=== PATIENT | male | born 1960 | race Caucasian/White ===

== ENCOUNTER 2016-10-01 15:07 | Emergency (ER) | payer OTHER ==
[~2016-10-01] VITALS: Ht 182.9 cm; Wt 93.9 kg
[2016-10-01 15:43] LABS: Basophils # (auto) 0.1 uL; Basophils % (auto) 0.5 % (0.0-2.0); Eosinophils # (auto) 0.3 uL; Eosinophils % (auto) 1.9 % (0.0-7.0); Hematocrit 45.3 % (41.0-53.0); Hemoglobin 15.1 g/dL (13.5-17.5); Mean Corpuscular Hgb Conc. 33.4 g/dL (32.0-36.0); Mean Corpuscular Volume 83.8 fL (80.0-100.0); Mean Platelet Volume 9.6 fL (7.4-10.4); Monocytes # (auto) 0.8 uL; Monocytes % (auto) 5.7 % (0.0-12.0); Neutrophils # (auto) 11.7 uL; Neutrophils % (auto) 84.9 % (37.0-80.0); Platelet Count (auto) 267 10^3/uL (140-450); Red Cell Distribution Width 13.4 % (11.6-16.0); White Blood Cell 13.7 10^3/uL (4.4-10.8)
[2016-10-01 15:54] LABS: BUN/Creatinine Ratio 13.3; Calcium 9.1 mg/dL (8.5-10.1); Potassium 4.3 mmol/L (3.5-5.1)
[2016-10-01 15:56] LABS: Bilirubin, Total 0.6 mg/dL (0.2-1.0); Total Protein 7.8 g/dL (6.4-8.2)
[2016-10-01] MEDS ORDERED: ASPirin 81 mg TAB PO ONE (17:45)
[2016-10-01 18:04] LABS: Magnesium 2.2 mg/dL (1.6-2.6)
[2016-10-01 18:46] LABS: B-Type Natriuretic Peptide 33.87 pg/mL (0-100)
[2016-10-01 19:12] LABS: Temperature: 22.2 C (20.0-25.0)
[2016-10-01 19:42] VITALS: BP 107/70
== END 2016-10-01 20:09 | disposition home or self-care (01) ==
LOC: ER 15:07
DX: J20.9 Acute bronchitis, unspecified (principal); E11.9 Type 2 diabetes mellitus without complications; E78.5 Hyperlipidemia, unspecified; F17.210 Nicotine dependence, cigarettes, uncomplicated; Z86.73 Personal history of transient ischemic attack (TIA), and cerebral infarction without residual deficits; Z90.89 Acquired absence of other organs
CPT/HCPCS: 36415; 71020; 80053; 83735; 83880; 84484; 85025; 85379; 93005; 94761

== ENCOUNTER 2017-06-28 09:50 | Emergency (ER) | payer OTHER ==
[~2017-06-28] VITALS: Ht 182.9 cm; Wt 90.7 kg
[2017-06-28 10:22] VITALS: BP 146/78
[2017-06-28] MEDS ORDERED: IPRATROPIUM BROM 0.5 MG/2.5ML INH SOL HHN ONE (10:30)
[2017-06-28] MEDS ORDERED: methylPREDNISolone SOD SUCC 125 MG/2 ML VL IV ONE (10:30)
[2017-06-28] MEDS ORDERED: ALBUTEROL SULF 2.5 MG/0.5ML(0.5%) NEB SOLN HHN ONE (10:30)
[2017-06-28] MEDS ORDERED: SODIUM CHLORIDE 0.9% 1,000 ML IV ONE (10:30)
[2017-06-28 11:36] LABS: Basophils # (auto) 0 uL; Basophils % (auto) 0.1 % (0.0-2.0); Eosinophils # (auto) 0 uL; Hematocrit 44.9 % (41.0-53.0); Hemoglobin 15.1 g/dL (13.5-17.5); Lymphocytes % (auto) 19.6 % (10.0-50.0); Mean Corpuscular Hemoglobin 28.7 pg (28.0-32.0); Mean Corpuscular Hgb Conc. 33.7 g/dL (32.0-36.0); Mean Corpuscular Volume 85.1 fL (80.0-100.0); Monocytes # (auto) 1.5 uL; Monocytes % (auto) 14.5 % (0.0-12.0); Neutrophils # (auto) 6.7 uL; Neutrophils % (auto) 65.8 % (37.0-80.0); Nucleated Red Blood Cells % 0.4 %; Platelet Count (auto) 210 10^3/uL (140-450); Red Blood Cells 5.28 10^6/uL (4.5-5.90); Red Cell Distribution Width 13.6 % (11.8-14.3); White Blood Cell 10.2 10^3/uL (4.4-10.8)
[2017-06-28 11:54] LABS: Alanine Aminotransferase 51 U/L (16-61); Albumin 3.7 g/dL (3.4-5.0); Alkaline Phosphatase 83 U/L (45-117); Anion Gap 12 (5-15); Aspartate Aminotransferase 35 U/L (15-37); BUN/Creatinine Ratio 27.6; Bilirubin, Total 0.4 mg/dL (0.2-1.0); Blood Urea Nitrogen 27 mg/dL (7-18); Carbon Dioxide 25 mmol/L (21-32); Chloride 101 mmol/L (98-107); GFR African American 101 mL/min; GFR Non-African American 83 mL/min; Glucose 165 mg/dL (74-106); Magnesium 2.2 mg/dL (1.6-2.6); Potassium 4.2 mmol/L (3.5-5.1); Sodium 138 mmol/L (136-145); Total Protein 7.7 g/dL (6.4-8.2)
== END 2017-06-28 12:14 | disposition home or self-care (01) ==
LOC: ER 09:50
DX: J20.9 Acute bronchitis, unspecified (principal); J43.9 Emphysema, unspecified; J44.9 Chronic obstructive pulmonary disease, unspecified; E11.9 Type 2 diabetes mellitus without complications; E78.5 Hyperlipidemia, unspecified; Z86.73 Personal history of transient ischemic attack (TIA), and cerebral infarction without residual deficits; F17.210 Nicotine dependence, cigarettes, uncomplicated
CPT/HCPCS: 36415; 71045; 80053; 83735; 84484; 85025; 93005; 94640; 94761; 96361; 96374; 99285; J2930

== ENCOUNTER 2017-07-02 11:44 | Inpatient (IN) | payer OTHER ==
[~2017-07-02] VITALS: Ht 182.9 cm; Wt 98.1 kg
[2017-07-02] MEDS ORDERED: IPRATROPIUM BROM 0.5 MG/2.5ML INH SOL NEB ONE (12:15)
[2017-07-02] MEDS ORDERED: methylPREDNISolone SOD SUCC 125 MG/2 ML VL IV ONE (12:15)
[2017-07-02] MEDS ORDERED: ASPirin 81 mg TAB PO ONE (12:15)
[2017-07-02] MEDS ORDERED: NITROGLYCERIN 0.4 MG SL TAB SL ONE (12:15)
[2017-07-02] MEDS ORDERED: ALBUTEROL SULF 2.5 MG/0.5ML(0.5%) NEB SOLN NEB ONE (12:15)
[2017-07-02 14:44] LABS: Basophils # (auto) 0.1 uL; Basophils % (auto) 0.5 % (0.0-2.0); Eosinophils # (auto) 0.1 uL; Eosinophils % (auto) 0.9 % (0.0-7.0); Hematocrit 50.1 % (41.0-53.0); Hemoglobin 16.8 g/dL (13.5-17.5); Lymphocytes % (auto) 14.1 % (10.0-50.0); Mean Corpuscular Hemoglobin 28.4 pg (28.0-32.0); Mean Corpuscular Hgb Conc. 33.6 g/dL (32.0-36.0); Mean Corpuscular Volume 84.6 fL (80.0-100.0); Monocytes # (auto) 1.1 uL; Monocytes % (auto) 7.7 % (0.0-12.0); Neutrophils % (auto) 76.8 % (37.0-80.0); Nucleated Red Blood Cells % 0.2 %; Platelet Count (auto) 305 10^3/uL (140-450); Red Blood Cells 5.93 10^6/uL (4.5-5.90); Red Cell Distribution Width 13.3 % (11.8-14.3); White Blood Cell 14.4 10^3/uL (4.4-10.8)
[2017-07-02 14:50] LABS: INR 0.93 (0.9-1.15); Partial Thromboplastin Time 25.2 sec (22.64-33.71); Prothrombin Time 10.1 sec (9.37-12.3)
[2017-07-02 14:56] LABS: Alanine Aminotransferase 33 U/L (16-61); Albumin 3.6 g/dL (3.4-5.0); Anion Gap 10 (5-15); Aspartate Aminotransferase 12 U/L (15-37); BUN/Creatinine Ratio 17.5; Blood Urea Nitrogen 24 mg/dL (7-18); Carbon Dioxide 26 mmol/L (21-32); Chloride 93 mmol/L (98-107); GFR African American 68 mL/min; GFR Non-African American 57 mL/min; Potassium 4.6 mmol/L (3.5-5.1); Sodium 129 mmol/L (136-145)
[2017-07-02 14:57] LABS: Lactic Acid w/Reflex 2.9 mmol/L (0.4-2.0)
[2017-07-02 14:59] LABS: Alkaline Phosphatase 87 U/L (45-117); Bilirubin, Total 0.5 mg/dL (0.2-1.0); Total Protein 7.8 g/dL (6.4-8.2)
[2017-07-02 15:06] LABS: Glucose 414 mg/dL (74-106)
[2017-07-02] MEDS ORDERED: SODIUM CHLORIDE 0.9% 1,000 ML IV ONE ×2 (15:53)
[2017-07-02] MEDS ORDERED: PIPERACILLIN-TAZOB 3.375GM 50 ML IV ONE (16:00)
[2017-07-02] MEDS ORDERED: NITROGLYCERIN 0.4 MG SL TAB SL PRN (19:00)
[2017-07-02] MEDS ORDERED: HYDROcodone-ACET 5/325MG TAB PO PRN (19:00)
[2017-07-02] MEDS ORDERED: DOCUSATE SOD 100 MG CAP PO PRN (19:00)
[2017-07-02] MEDS ORDERED: ACETAMINOPHEN 325 MG TAB PO PRN (19:00)
[2017-07-02] MEDS ORDERED: DEXTROSE (50%) 50ML SYRG IV PRN (19:00)
[2017-07-02] MEDS ORDERED: TEMAZEPAM 15 MG CAP PO PRN (19:00)
[2017-07-02] MEDS ORDERED: MORPHINE SULFATE 10 MG/ML INJ 1ML SDV IV PRN ×2 (19:00)
[2017-07-02] MEDS ORDERED: ONDANSETRON HCL 4 MG/2 ML VIAL IV PRN (19:00)
[2017-07-02] MEDS ORDERED: cefTRIAXone 1GM/10ml IVPUSH 10 ML IV ONE (19:15)
[2017-07-02] MEDS ORDERED: AZITHROMYCIN 500MG/ 250ML 250 ML IV ONE (20:00)
[2017-07-02] MEDS: OSELTAMIVIR 75 MG CAP PO SCH (21:52)
[2017-07-02] MEDS: ATORVASTATIN 20 MG TAB PO SCH (21:52)
[2017-07-02] MEDS: FAMOTIDINE 20 MG TAB PO SCH (21:52)
[2017-07-02] MEDS: InsuLIN REG 1unit/0.01ml Soln (100units/ml) SC SCH (21:53)
[2017-07-02] MEDS: ACCU-CHEK COMFORT CURVE STRIP VI SCH (21:53)
[2017-07-02] MEDS: FORMOTEROL IN SCH (22:00)
[2017-07-02] MEDS: BENZONATATE 100 MG CAP PO SCH (22:00)
[2017-07-02] MEDS: MUCINEX 600 MG PO SCH (22:00)
[2017-07-02] MEDS: GLYCOPYRROLATE IN SCH (22:00)
[2017-07-02] MEDS ORDERED: PATIENTS OWN MEDICATION IN SCH (22:00)
[2017-07-02] MEDS: IPRATROPIUM BROM 0.5 MG/2.5ML INH SOL NEB SCH (22:48)
[2017-07-02] MEDS: ALBUTEROL SULF 2.5 MG/0.5ML(0.5%) NEB SOLN NEB SCH (22:48)
[2017-07-02] MEDS: SODIUM CHLOR 0.9% PF (SALINE LOCK) 10ML VIAL IV SCH (23:09)
[2017-07-02 23:23] VITALS: BP 134/74
[2017-07-02] MEDS ORDERED: INFLUENZA QUAD 2017-2018 0.5 ML SYRG IM ONE (23:45)
[2017-07-03] VITALS (7 sets, daily range): BP systolic 100–136; BP diastolic 57–71
[2017-07-03] MEDS: IPRATROPIUM BROM 0.5 MG/2.5ML INH SOL NEB SCH ×6 (02:00→22:16)
[2017-07-03] MEDS: ALBUTEROL SULF 2.5 MG/0.5ML(0.5%) NEB SOLN NEB SCH ×6 (02:00→22:16)
[2017-07-03] MEDS: methylPREDNISolone SOD SUCC 40 MG/ML VL IV SCH ×4 (02:14→17:37)
[2017-07-03] MEDS: BENZONATATE 100 MG CAP PO SCH ×3 (06:00→22:00)
[2017-07-03 06:28] LABS: Basophils # (auto) 0 uL; Basophils % (auto) 0.2 % (0.0-2.0); Eosinophils # (auto) 0 uL; Hematocrit 41.7 % (41.0-53.0); Lymphocytes # (auto) 0.8 uL; Mean Corpuscular Hemoglobin 28.1 pg (28.0-32.0); Mean Corpuscular Hgb Conc. 33.5 g/dL (32.0-36.0); Mean Corpuscular Volume 83.9 fL (80.0-100.0); Monocytes # (auto) 0.2 uL; Monocytes % (auto) 1.7 % (0.0-12.0); Neutrophils # (auto) 11.1 uL; Neutrophils % (auto) 91.1 % (37.0-80.0); Platelet Count (auto) 266 10^3/uL (140-450); Red Blood Cells 4.97 10^6/uL (4.5-5.90); Red Cell Distribution Width 12.9 % (11.8-14.3); White Blood Cell 12.2 10^3/uL (4.4-10.8)
[2017-07-03 06:52] LABS: Albumin 3.1 g/dL (3.4-5.0); BUN/Creatinine Ratio 21.9; Bilirubin, Total 0.4 mg/dL (0.2-1.0); Calcium 8.5 mg/dL (8.5-10.1); Potassium 4.9 mmol/L (3.5-5.1); Total Protein 6.7 g/dL (6.4-8.2)
[2017-07-03] MEDS: SODIUM CHLOR 0.9% PF (SALINE LOCK) 10ML VIAL IV SCH ×3 (06:59→22:00)
[2017-07-03] MEDS: InsuLIN REG 1unit/0.01ml Soln (100units/ml) SC SCH ×4 (07:10→23:11)
[2017-07-03] MEDS: ACCU-CHEK COMFORT CURVE STRIP VI SCH ×4 (07:10→23:09)
[2017-07-03] MEDS: cefTRIAXone 1GM/10ml IVPUSH 10 ML IV SCH (09:57)
[2017-07-03] MEDS: MULTIPLE VITAMIN TAB PO SCH (09:58)
[2017-07-03] MEDS: FAMOTIDINE 20 MG TAB PO SCH ×2 (09:58→23:09)
[2017-07-03] MEDS: CLOPIDOGREL BISULFATE 75 MG TAB PO SCH (09:59)
[2017-07-03] MEDS: LORATADINE 10 MG TAB PO SCH (09:59)
[2017-07-03] MEDS: LISINOPRIL 20 MG TAB PO SCH (09:59)
[2017-07-03] MEDS: GLYCOPYRROLATE IN SCH ×2 (10:00→23:11)
[2017-07-03] MEDS: MUCINEX 600 MG PO SCH ×2 (10:00→22:00)
[2017-07-03] MEDS: FORMOTEROL IN SCH ×2 (10:00→23:11)
[2017-07-03] MEDS: OSELTAMIVIR 75 MG CAP PO SCH (10:00)
[2017-07-03] MEDS: AZITHROMYCIN 500MG/ 250ML 250 ML IV SCH (10:02)
[2017-07-03 10:13] LABS: Urine Bacteria NONE SEEN /hpf (None Seen); Urine Blood Negative /uL (Negative); Urine Specific Gravity 1.031 (1.001-1.035); Urine WBC <1 /hpf (0 - 3)
[2017-07-03] MEDS ORDERED: POTASSIUM CHL 20 Meq TABLET PO ONE (17:45)
[2017-07-03] MEDS ORDERED: INSULIN DETEMIR(LEVEMIR) 1unit/0.01ml Soln (100units/ml) SC SCH (22:00)
[2017-07-03] MEDS: ATORVASTATIN 20 MG TAB PO SCH (23:09)
[2017-07-04] MEDS: methylPREDNISolone SOD SUCC 40 MG/ML VL IV SCH ×4 (00:15→18:00)
[2017-07-04] MEDS: ALBUTEROL SULF 2.5 MG/0.5ML(0.5%) NEB SOLN NEB SCH ×4 (02:00→14:14)
[2017-07-04] MEDS: IPRATROPIUM BROM 0.5 MG/2.5ML INH SOL NEB SCH ×5 (02:00→18:30)
[2017-07-04 05:00] VITALS: BP 120/67
[2017-07-04] MEDS: SODIUM CHLOR 0.9% PF (SALINE LOCK) 10ML VIAL IV SCH ×2 (06:00→13:51)
[2017-07-04] MEDS: BENZONATATE 100 MG CAP PO SCH ×2 (06:00→13:52)
[2017-07-04] MEDS: ACCU-CHEK COMFORT CURVE STRIP VI SCH ×3 (06:31→18:00)
[2017-07-04] MEDS: InsuLIN REG 1unit/0.01ml Soln (100units/ml) SC SCH ×3 (06:31→18:01)
[2017-07-04 06:48] LABS: Basophils # (auto) 0 uL; Basophils % (auto) 0.1 % (0.0-2.0); Eosinophils # (auto) 0 uL; Hematocrit 41.4 % (41.0-53.0); Hemoglobin 13.9 g/dL (13.5-17.5); Lymphocytes % (auto) 4.4 % (10.0-50.0); Mean Corpuscular Hemoglobin 28.4 pg (28.0-32.0); Mean Corpuscular Hgb Conc. 33.5 g/dL (32.0-36.0); Mean Corpuscular Volume 84.6 fL (80.0-100.0); Monocytes # (auto) 0.9 uL; Monocytes % (auto) 3.9 % (0.0-12.0); Neutrophils # (auto) 20.7 uL; Neutrophils % (auto) 91.6 % (37.0-80.0); Platelet Count (auto) 298 10^3/uL (140-450); Red Cell Distribution Width 13.1 % (11.8-14.3); White Blood Cell 22.6 10^3/uL (4.4-10.8)
[2017-07-04 07:09] LABS: BUN/Creatinine Ratio 23.6; Calcium 8.7 mg/dL (8.5-10.1); Potassium 4.8 mmol/L (3.5-5.1)
[2017-07-04 09:00] VITALS: BP 99/69
[2017-07-04] MEDS: MUCINEX 600 MG PO SCH (10:00)
[2017-07-04] MEDS: FORMOTEROL IN SCH (10:00)
[2017-07-04] MEDS: GLYCOPYRROLATE IN SCH (10:00)
[2017-07-04] MEDS: LORATADINE 10 MG TAB PO SCH (10:41)
[2017-07-04] MEDS: MULTIPLE VITAMIN TAB PO SCH (10:41)
[2017-07-04] MEDS: AZITHROMYCIN 500MG/ 250ML 250 ML IV SCH (10:41)
[2017-07-04] MEDS: FAMOTIDINE 20 MG TAB PO SCH (10:41)
[2017-07-04] MEDS: cefTRIAXone 1GM/10ml IVPUSH 10 ML IV SCH (10:41)
[2017-07-04] MEDS: CLOPIDOGREL BISULFATE 75 MG TAB PO SCH (10:41)
[2017-07-04] MEDS: LISINOPRIL 20 MG TAB PO SCH (10:43)
[2017-07-04 13:00] VITALS: BP 122/65
[2017-07-04 16:46] VITALS: BP 129/65
[2017-07-04] MEDS ORDERED: LORA-154 PO (17:15)
[2017-07-04] MEDS ORDERED: AZIT250T7 PO (17:15)
[2017-07-04] MEDS ORDERED: ATOR20TA50 PO (17:15)
[2017-07-04] MEDS ORDERED: CLOP75TA28 PO (17:15)
[2017-07-04] MEDS ORDERED: LISI-646 PO (17:15)
[2017-07-04] MEDS ORDERED: PRE5T PO (17:15)
[2017-07-05] MEDS ORDERED: AZITHROMYCIN 250 MG TAB PO SCH (10:00)
== END 2017-07-04 18:53 | disposition home or self-care (01) | DRG 871 ==
LOC: EDBD 11:44 → ER 11:44 → TELE 11:45 → TELE-WESTW 22:00
PROVIDERS: ADMIT Internal Medicine; ATTEND Nurse Practitioner Acute Care
DX: A41.9 Sepsis, unspecified organism (principal); J18.9 Pneumonia, unspecified organism; E11.21 Type 2 diabetes mellitus with diabetic nephropathy; J44.0 Chronic obstructive pulmonary disease with (acute) lower respiratory infection; E87.1 Hypo-osmolality and hyponatremia; J45.901 Unspecified asthma with (acute) exacerbation; J44.1 Chronic obstructive pulmonary disease with (acute) exacerbation; E11.22 Type 2 diabetes mellitus with diabetic chronic kidney disease; E11.65 Type 2 diabetes mellitus with hyperglycemia; E78.5 Hyperlipidemia, unspecified; F17.210 Nicotine dependence, cigarettes, uncomplicated; N18.3 Chronic kidney disease, stage 3 (moderate); Z83.3 Family history of diabetes mellitus; Z86.73 Personal history of transient ischemic attack (TIA), and cerebral infarction without residual deficits; Z90.89 Acquired absence of other organs; Z23 Encounter for immunization
CPT/HCPCS: 36415; 71250; 80048; 80053; 81001; 82962; 83036; 83605; 83880; 84443; 84484; 85025; 85610; 85730; 87040; 87205; 87400; 93005; 94640; 96361; 96372; 96374; 96375; J1815; J2543